=== PATIENT | female | born 1995 | race Caucasian/White ===

== ENCOUNTER 2022-06-24 07:54 | Emergency (ER) | payer SELFPAY | END 2022-06-24 10:23 | disposition home or self-care (01) | LOC: MW.ED 07:54 | DX: R10.32 Left lower quadrant pain (principal); Z91.041 Radiographic dye allergy status | CPT/HCPCS: 76830; 76830-26; 99284 ==

== ENCOUNTER 2022-09-08 12:01 | Emergency (ER) | payer SELFPAY | END 2022-09-08 12:46 | disposition left against medical advice (07) | LOC: MW.ED 12:01 | DX: Z53.21 Procedure and treatment not carried out due to patient leaving prior to being seen by health care provider (principal) ==

== ENCOUNTER 2022-12-07 11:06 | Emergency (ER) | payer MEDICAID ==
[2022-12-07 12:11] LABS: CORONAVIRUS COVID-19 NAA NEGATIVE (NEGATIVE); INFLUENZA A NAA NEGATIVE (NEGATIVE); INFLUENZA B NAA NEGATIVE (NEGATIVE)
== END 2022-12-07 13:29 | disposition home or self-care (01) ==
LOC: MW.ED 11:06
DX: J32.9 Chronic sinusitis, unspecified (principal); B96.89 Other specified bacterial agents as the cause of diseases classified elsewhere; I10 Essential (primary) hypertension; Z20.822 Contact with and (suspected) exposure to COVID-19; Z91.041 Radiographic dye allergy status
CPT/HCPCS: 0240U; 71046; 99283

== ENCOUNTER 2023-01-11 19:13 | Emergency (ER) | payer MEDICAID ==
[2023-01-11] MEDS ORDERED: Amoxicillin/Clavulanate K 875-125 MG Tab PO ONE (19:27)
== END 2023-01-11 20:52 | disposition home or self-care (01) ==
LOC: MW.ED 19:13
DX: M79.674 Pain in right toe(s) (principal); K08.89 Other specified disorders of teeth and supporting structures; I10 Essential (primary) hypertension; Z91.048 Other nonmedicinal substance allergy status
CPT/HCPCS: 73620; 99283; A9270

== ENCOUNTER 2023-02-02 08:04 | Emergency (ER) | payer MEDICAID ==
[2023-02-02] MEDS ORDERED: Ketorolac 60 MG/2 ML SDV IM ONE (08:45)
[2023-02-02 09:36] LABS: CORONAVIRUS COVID-19 NAA POSITIVE (NEGATIVE); INFLUENZA A NAA NEGATIVE (NEGATIVE); INFLUENZA B NAA NEGATIVE (NEGATIVE)
== END 2023-02-02 09:56 | disposition home or self-care (01) ==
LOC: MW.ED 08:04
DX: U07.1 COVID-19 (principal); Z91.041 Radiographic dye allergy status
CPT/HCPCS: 0240U; 71045; 87651; 96372; 99283; J1885

== ENCOUNTER 2023-02-07 09:16 | Emergency (ER) | payer MEDICAID ==
[2023-02-07] MEDS ORDERED: Ketorolac 30 MG/ML SDV IVPUSH ONE (09:54)
[2023-02-07 10:25] LABS: BASOPHILS ABSOLUTE AUTO 0.01 K/uL (0.00-0.20); BASOPHILS PERCENT AUTO 0.1 % (0.0-1.0); EOSINOPHILS ABSOLUTE AUTO 0.11 K/uL (0.00-0.45); EOSINOPHILS PERCENT AUTO 1.6 % (0.0-6.0); HEMATOCRIT 39.2 % (37.0-47.0); HEMOGLOBIN 13.3 g/dL (12.0-16.0); IMMATURE GRAN ABSOLUTE AUTO 0.01 K/uL (0.00-0.05); IMMATURE GRAN PERCENT AUTO 0.1 % (0.0-0.4); LYMPHOCYTES ABSOLUTE AUTO 2.24 K/uL (1.00-4.80); LYMPHOCYTES PERCENT AUTO 33.4 % (24.0-44.0); MEAN CORPUSCULAR HEMOGLOBIN 26.5 pg (28.0-32.0); MEAN CORPUSCULAR HGB CONC 33.9 g/dL (32.0-36.0); MEAN CORPUSCULAR VOLUME 78.2 fL (83.0-99.0); MEAN PLATELET VOLUME 10.2 fL (9.4-12.3); NEUTROPHILS ABSOLUTE AUTO 3.94 K/uL (1.80-7.70); NEUTROPHILS PERCENT AUTO 58.8 % (41.0-71.0); PLATELET COUNT,PLT 183 K/uL (150-400); RED BLOOD CELL COUNT 5.01 M/uL (4.10-5.30); WHITE BLOOD CELL COUNT,WBC 6.71 K/uL (3.9-11.3)
[2023-02-07 11:00] LABS: A/G RATIO 0.8 (0.9-1.6); ALBUMIN 3.4 g/dL (3.4-5.0); BILIRUBIN TOTAL 0.3 mg/dL (0.2-1.0); CALCIUM 8.6 mg/dL (8.5-10.1); CREATININE 0.9 mg/dL (0.6-1.0); EST CRCL DRUG DOSING (CG) 73.6 mL/min; PROTEIN TOTAL,TP 7.5 g/dL (6.4-8.2)
== END 2023-02-07 11:30 | disposition home or self-care (01) ==
LOC: MW.ED 09:16
DX: R07.2 Precordial pain (principal); Z91.041 Radiographic dye allergy status
CPT/HCPCS: 36415; 71045; 80053; 83735; 84484; 85025; 85379; 93005; 96374; 99285; J1885; 93010; 99284

== ENCOUNTER 2023-02-13 22:09 | Emergency (ER) | payer MEDICAID | END 2023-02-13 23:50 | disposition home or self-care (01) | LOC: MW.ED 22:09 | DX: U07.1 COVID-19 (principal); Z87.891 Personal history of nicotine dependence; Z79.899 Other long term (current) drug therapy; Z91.041 Radiographic dye allergy status | CPT/HCPCS: 71045; 71045-26; 87651-QW; 99283 ==